=== PATIENT | female | born 1975 | race African-American/Black ===

== ENCOUNTER 2022-03-09 04:49 | Day surgery (SDC) | payer OTHER ==
[2022-03-08 09:43] VITALS: BMI 28.3
[2022-03-09] MEDS ORDERED: HEPARIN NA (PORCINE) 5,000 UNITS/ML 1ML VIAL ONE (09:39)
[2022-03-09] MEDS ORDERED: KETOROLAC TROMETHAMINE 30 MG/1 ML VIAL ONE (11:29)
[2022-03-09] MEDS ORDERED: MIDAZOLAM HCL 2 MG/2 ML SINGLE DOSE VIAL ONE ×2 (11:30→12:26)
[2022-03-09] MEDS: FENTANYL CITRATE/PF 50 MCG/ML VIAL IVPUSH SCH ×4 (12:04→13:30)
[2022-03-09] MEDS: MIDAZOLAM HCL 2 MG/2 ML SINGLE DOSE VIAL IVPUSH SCH ×3 (12:06→13:36)
[2022-03-09] MEDS ORDERED: SODIUM CHLORIDE 1,000 ML IV SCH (13:00)
[2022-03-09] MEDS: KETOROLAC TROMETHAMINE 30 MG/1 ML VIAL IVPUSH SCH ×2 (13:08→14:10)
[2022-03-09] MEDS ORDERED: HYDROmorphone *PCA* 10MG/50ML DISP.SYRIN ONE (13:43)
[2022-03-09] MEDS: HYDROmorphone *PCA* 10MG/50ML DISP.SYRIN PCA SCH (13:50)
[2022-03-09] MEDS ORDERED: SODIUM CHLORIDE 500 ML IV ONE (14:00)
[2022-03-09] MEDS ORDERED: ONDANSETRON 4 MG/2 ML VIAL IVPUSH PRN (14:31)
[2022-03-09] MEDS ORDERED: ACETAMINOPHEN 1000 MG/100 ML BAG IVPB ONE (20:28)
[2022-03-09 20:54] LABS: BASO % 0.2 % (0-2.0); HEMATOCRIT 29.9 % (32.4-45.2); HEMOGLOBIN 9.6 GM/dL (10.7-15.3); LYMPH % 7.7 % (8-40); MCHC 32.2 g/dl (32.0-36.0); MEAN CELL VOLUME 74.5 fl (80-96); MEAN PLT VOLUME 7.8 fl (7.5-11.1); MONO % 4.4 % (3.8-10.2); NEUT % 87.7 % (42.8-82.8); PLATELET COUNT 342 10^3/uL (134-434); RBC 4.02 M/mm3 (3.60-5.2); RDW 16.2 % (11.6-15.6); WHITE BLOOD COUNT 11.7 K/mm3 (4.0-10.0)
[2022-03-09 21:15] LABS: BLOOD UREA NITROGEN 5.4 mg/dL (7-18); CALCIUM 8.7 mg/dL (8.5-10.1); MAGNESIUM 1.8 mg/dL (1.8-2.4)
[2022-03-09 21:16] LABS: ALBUMIN 3.5 g/dl (3.4-5.0)
[2022-03-09 21:19] LABS: CREATININE 0.6 mg/dL (0.55-1.3)
[2022-03-09 21:20] LABS: BILIRUBIN,TOTAL 0.3 mg/dL (0.2-1); TOT PROT 7.8 g/dl (6.4-8.2)
[2022-03-10] MEDS ORDERED: ENOXAPARIN NA (PORCINE) 40 MG/0.4 ML DISP.SYRIN SQ SCH (10:00)
[2022-03-10 11:45] VITALS: BP 150/80; PULSE 92; TEMP 98.4
== END 2022-03-10 14:11 | disposition home or self-care (01) ==
LOC: JASUSAT 04:49 → SUATTDRO 04:49 → J8W 17:50 → JASUSAT 03-10 14:11
PROVIDERS: ATTEND Internal Medicine
PROC: 04LE3DT Occlusion of Right Uterine Artery with Intraluminal Device, Percutaneous Approach (ICD-10-PCS; 2022-03-09)
PROC: 04LF3DU Occlusion of Left Uterine Artery with Intraluminal Device, Percutaneous Approach (ICD-10-PCS; principal; 2022-03-09 10:00)
DX: D25.9 Leiomyoma of uterus, unspecified (principal)
CPT/HCPCS: 36415; 37243; 80053; 81025; 83735; 85025; 94760